=== PATIENT | male | born 1970 | race Caucasian/White ===

== ENCOUNTER 2019-07-16 15:01 | Emergency (ER) | payer MEDICAID ==
[~2019-07-16] VITALS: Ht 167.6 cm; Wt 93.4 kg
[2019-07-16] MEDS ORDERED: HYDROcodone-ACET 5/325MG TAB PO ONE (15:45)
[2019-07-16 15:52] LABS: Basophils # (auto) 0 uL; Basophils % (auto) 0.6 % (0.0-2.0); Eosinophils # (auto) 0.1 uL; Eosinophils % (auto) 2.1 % (0.0-7.0); Hemoglobin 13.6 g/dL (13.5-17.5); Lymphocytes # (auto) 1.3 uL; Lymphocytes % (auto) 18.7 % (10.0-50.0); Mean Corpuscular Hemoglobin 30.2 pg (28.0-32.0); Mean Corpuscular Hgb Conc. 33.9 g/dL (32.0-36.0); Mean Corpuscular Volume 89.2 fL (80.0-100.0); Monocytes # (auto) 0.7 uL; Monocytes % (auto) 10.3 % (0.0-12.0); Neutrophils # (auto) 4.9 uL; Neutrophils % (auto) 68.3 % (37.0-80.0); Platelet Count (auto) 229 10^3/uL (140-450); Red Blood Cells 4.48 10^6/uL (4.5-5.90); Red Cell Distribution Width 14.3 % (11.8-14.3); White Blood Cell 7.2 10^3/uL (4.4-10.8)
[2019-07-16 16:11] LABS: Albumin 3.5 g/dL (3.4-5.0); Calcium 8.8 mg/dL (8.5-10.1); Potassium 3.6 mmol/L (3.5-5.1)
[2019-07-16 16:14] LABS: BUN/Creatinine Ratio 26.5; Bilirubin, Total 1.9 mg/dL (0.2-1.0); Total Protein 7.5 g/dL (6.4-8.2)
[2019-07-16 17:45] VITALS: BP 155/92
== END 2019-07-16 17:58 | disposition home or self-care (01) ==
LOC: ER 15:01
DX: M17.12 Unilateral primary osteoarthritis, left knee (principal); E11.9 Type 2 diabetes mellitus without complications; I10 Essential (primary) hypertension; Z90.49 Acquired absence of other specified parts of digestive tract
CPT/HCPCS: 36415; 73562; 80053; 84550; 85025